=== PATIENT | female | born 1965 | race Two or more races ===

== ENCOUNTER → 2020-01-23 | Day surgery (SDC) | payer MEDICAID ==
[2020-01-22 11:26] LABS: APPEARANCE,URINE CLEAR; BILIRUBIN, URINE NEGATIVE (NEGATIVE); COLOR,URINE PALE YELLOW; GLUCOSE, URINE (UA) NEGATIVE (NEGATIVE); KETONES,URINE NEGATIVE (NEGATIVE); LEUKOCYTE ESTERASE ,URINE 2+ (NEGATIVE); NITRITE,URINE NEGATIVE (NEGATIVE); PH,URINE 7 (4.5-8.0); PROTEIN,URINE NEGATIVE (NEGATIVE); UROBILINOGEN,URINE NORMAL MG/DL (0.0-1.0)
[2020-01-22 11:28] LABS: BASOPHILS % (AUTO) 1.1 % (0.0-2.0); EOSINOPHILS % (AUTO) 5.3 % (0.0-3.0); HEMATOCRIT 43.4 % (37.0-47.0); HEMOGLOBIN 14.5 G/DL (12.0-16.0); LYMPHOCYTES % (AUTO) 32.4 % (20.0-45.0); MEAN CORPUSCULAR VOLUME 90 FL (80-99); MONOCYTES % (AUTO) 5.5 % (1.0-10.0); NEUTROPHILS % (AUTO) 55.7 % (45.0-75.0); PLATELET COUNT 251 K/UL (150-450); RED CELL DISTRIBUTION WIDTH 11.2 % (11.6-14.8); WHITE BLOOD COUNT 8.5 K/UL (4.8-10.8)
[2020-01-22 11:42] LABS: ANION GAP 5 mmol/L (5-15); BLOOD UREA NITROGEN 13 mg/dL (7-18); CALCIUM 9.6 MG/DL (8.5-10.1); CARBON DIOXIDE 29 MMOL/L (21-32); CHLORIDE 106 MMOL/L (98-107); CREATININE 0.7 MG/DL (0.55-1.30); POTASSIUM 4.3 MMOL/L (3.5-5.1); SODIUM 140 MMOL/L (136-145)
--- NOTE | 2020-01-22 17:45 | Pre-op HX & Phy Repo 2 SIG ---
DATE OF ADMISSION: 01/23/2020 SCHEDULED FOR OUTPATIENT SURGERY: January 23, 2020. HISTORY OF PRESENT ILLNESS: The patient is a 54-year-old female in overall stable health, who developed a lump in her left breast lower inner quadrant a year ago. She received antibiotics and it resolved. In October, she was seen for abnormal skin lesion of the left breast located at approximately 6 to 7 o'clock 8 cm from the nipple measuring 2.5 x 0.4 x 2.7 cm consistent with sebaceous cyst versus abscess. However, on examination, there was no mass, no cellulitis, only mild tenderness and there was skin discoloration consistent with an ecchymosis. She was treated with Bactrim without any improvement clinically or by ultrasound which interpreted as infection. She received a week of clindamycin orally without any changes. Antibiotics were discontinued and decision was made to excise this skin lesion. PAST MEDICAL HISTORY/MEDICATIONS: Atenolol, thyroid, Zoloft, statin. ALLERGIES: None. OPERATIONS: . Last menstrual period 2016. PHYSICAL EXAMINATION: GENERAL: The patient is 5 feet 7 inches, 209 pounds. VITAL SIGNS: Within normal limits. HEENT: Within normal limits. LUNGS: Clear. HEART: Regular rhythm. BREASTS: Large and ptotic. The left breast lower inner quadrant in the periphery, there is an area of skin discoloration without mass or inflammation. There is no axillary, supraclavicular lymphadenopathy. ABDOMEN: Soft. PELVIC: Per primary care. RECTAL: Per primary care. EXTREMITIES: Without edema. NEUROLOGIC: Physiologic. IMPRESSION: Persistent skin lesion, left breast. PLAN: Excision of left breast skin lesion. PLAN: Full discussion has been had with the patient regarding the nature of the surgery, indications, alternatives, options, and risks including bleeding, infection, scarring, distortion of breast or nipple, need for additional procedures or treatment based on final pathology, etc. All questions have been answered. She understands and agrees to proceed. Lucio Drake M.D. DR: Jas JOB#: [id number] CC:
[~2020-01-23] VITALS: Ht 167.6 cm; Wt 90.7 kg
[2020-01-23] VITALS (8 sets, daily range): BP systolic 92–105; BP diastolic 5–65
[~2020-01-23] MED LIST: ASPIRIN325 MG ORAL; ATENOLOL25 MG ORAL; Bacitracin 50000 Units Vial ONE; Bupivacaine 0.5% Inj 30 ml vial INJ ONE; D5 1/2NS 1,000 ML IV SCH; DiphenhydrAMINE 50mg/ml Inj IVP PRN; HYDROcodone/Acetamin 5/325 tab ORAL PRN; HYDROmorphone 1mg/ml Carpuject SUBQ PRN; Hydromorphone 0.5mg/0.5ml inj IVP PRN; Ketorolac 30mg Inj IV PRN; Ketorolac 30mg Inj ONE; LR 1000ml 1,000 ML IVLG SCH; LR 1000ml ONE; Lidocaine 1% 10mg/ml/Epi 0.005mg/ml 30ml vial INJ ONE; Lidocaine 1% MPF 10mg/ml 5ml ONE; Lidocaine 1% Plain 30 ml INJ ONE; Midazolam 2mg/2ml Inj IVP PRN; Midazolam 2mg/2ml Inj ONE; NS Irrig 1000ml ONE; NeoSporin Gu Irrig 1ml Amp IRRIG ONE; SYNTHROID112 MCG ORAL; Sterile Water Irrig 2000ml IRRIG ONE; Tylenol #3 tab (300mg/30mg) ORAL PRN; ZOCOR40 MG ORAL; ZOLOFT100 MG ORAL; fentaNYL 100 mcg/2 mL IV ONE
--- NOTE | 2020-01-23 11:28 | Pre-Procedure Note/Attestation ---
Pre-Procedure Note/Attestation Complete Prior to Procedure Planned Procedure: left - exc Procedure Narrative: excision of skin lesion left breast Indications for Procedure Pre-Operative Diagnosis: skin lesion left breast Attestation I attest that I discussed the nature of the procedure; its benefits; risks and complications; and alternatives (and the risks and benefits of such alternatives ), prior to the procedure, with the patient (or the patient's legal credit representative). I attest that, if there was a reasonable possibility of needing a blood transfusion, the patient (or the patient's legal credit representative) was given the [facility] standardized written summary, pursuant to the Yobani Cecelia Blood Safety Act ([place] Health and Safety Code # 1645, as amended). I attest that I re-evaluated the patient just prior to the surgery and that there has been no change in the patient's H&P, except as documented below:none Lucio Drake MD Jan 23, 2020 11:28
--- NOTE | 2020-01-23 12:31 | Anethesia Preoperative Eval ---
Anesthesia Pre-op PMH/ROS General Date of Evaluation: Jan 23, 2020 Time of Evaluation: 11:56 Anesthesiologist: Aleta ASA Score: ASA 2 Mallampati Score Class I : Soft palate, uvula, fauces, pillars visible Class II: Soft palate, uvula, fauces visible Class III: Soft palate, base of uvula visible Class IV: Only hard plate visible Mallampati Classification: Class II Surgeon: Vidal Diagnosis: L breast skin leision Surgical Procedure: Excision of breast lesion Anesthesia History: none Family History: no anesthesia problems Allergies: Coded Allergies: No Known Allergies (Unverified , 01/22/20) Medications: see eMAR Patient NPO?: Yes Past Medical History Cardiovascular: Reports: HTN - borderline, arrhythmia - h/o A fib; Denies: CAD, AK, valve dz, other Pulmonary: Denies: asthma, COPD, ANTIONETTE, other Gastrointestinal/Genitourinary: Reports: GERD; Denies: CRI, ESRD, other Neurologic/Psychiatric: Reports: depression/anxiety; Denies: dementia, CVA, TIA, other Endocrine: Reports: hypothyroidism; Denies: DM, steroids, other HEENT: Denies: cataract (L), cataract (R), glaucoma, WILTON (L), WILTON (R), other Hematology/Immune: Denies: anemia, DVT, bleeding disorder, other Musculoskeletal/Integumentary: Denies: OA, RA, DJD, DDD, edema, other Other: obesity PMH Narrative: as above PSxH Narrative: D&Cs, cardiac ablation Anesthesia Pre-op Phys. Exam Physician Exam Last Vital Signs Date Time Temp Pulse Resp B/P (MAP) Pulse Ox O2 Delivery O2 Flow Rate FiO2 01/23/20 11:29 97.4 58 18 100/55 96 Room Air Constitutional: NAD Neurologic: CN 2-12 intact Cardiovascular: RRR, no M/R/G Respiratory: CTA Gastrointestinal: S/NT/ND, other - obesity Airway Exam Mallampati Score: Class II MO: full Neck: flexible ROM: full Teeth: intact Dentures: no upper, no lower Anesthesia Pre-op A/P Labs see chart Studies Pre-op Studies: EKG - NSR Risk Assessment & Plan Assessment: ASA 2 Plan: GA with LMA Status Change Before Surgery: No Pre-Antibiotics Drug: Ancef 1gr. Given Within 1 Hr of Incision: Yes Time Given: 12:10 Salvador River MD Jan 23, 2020 12:31
--- NOTE | 2020-01-23 12:50 | Brief Operative Note ---
Immediate Post Operative Note Operative Note Pre-op Diagnosis: skin lesion left breast Procedure: excision of skin lesion left breast Post-op Diagnosis: same Post-op Diagnosis: same as pre-op Findings: consistent w/pre-op dx studies Surgeon: alayna Anesthesiologist: kamilah Anesthesia: general Specimen: yes - left breast skin lesion Complications: none Condition: stable Fluids: see anesthesia record Estimated Blood Loss: none Drains: none Implant(s) used?: No Lucio Drake MD Jan 23, 2020 12:50
--- NOTE | 2020-01-23 12:56 | Immediate Post-Op Evaluation ---
Immediate Post-Op Evalulation Immediate Post-Op Evalulation Procedure: L breast excision of skin lesion Date of Evaluation: Jan 23, 2020 Time of Evaluation: 12:55 IV Fluids: 700 Blood Products: none Estimated Blood Loss: min Urinary Output: none Blood Pressure Systolic: 105 Blood Pressure Diastolic: 56 Pulse Rate: 64 Respiratory Rate: 18 O2 Sat by Pulse Oximetry: 99 Temperature (Fahrenheit): 97.6 Pain Score (1-10): 1 Nausea: No Vomiting: No Complications none Patient Status: reacts, patent, none Hydration Status: adequate Salvador River MD Jan 23, 2020 12:56
--- NOTE | 2020-01-23 13:17 | 48 Hour Post Anesthesia Eval ---
Post Anesthesia Evaluation Procedure: L breast excision of skin lesion Date of Evaluation: Jan 23, 2020 Time of Evaluation: 13:16 Blood Pressure Systolic: 102 0: 56 Pulse Rate: 62 Respiratory Rate: 18 Temperature (Fahrenheit): 97.6 O2 Sat by Pulse Oximetry: 98 Airway: patent Nausea: No Vomiting: No Pain Intensity: 1 Hydration Status: adequate Cardiopulmonary Status: stable Mental Status/LOC: patient returned to baseline Follow-up Care/Observations: n/a Post-Anesthesia Complications: none Follow-up care needed: ready to discharge Salvador River MD Jan 23, 2020 13:17
--- NOTE | 2020-01-23 16:14 | Operative Note - Dictated ---
DATE OF OPERATION: 01/23/2020 SURGEON: Lucio Drake MD. FOOD HANDLER: None. ANESTHESIOLOGIST: Salvador River MD. TYPE OF ANESTHESIA: General. PREOPERATIVE DIAGNOSIS: Skin lesion, left breast, lower inner quadrant. POSTOPERATIVE DIAGNOSIS: Skin lesion, left breast, lower inner quadrant. OPERATION PERFORMED: Excision of skin lesion, left breast. DESCRIPTION OF PROCEDURE: The patient was taken to the operating room and under general anesthesia with sequential compression device stockings in place, she was prepped and draped in usual fashion. The abnormality measured approximately 5 cm transversely and 3 cm vertically near the periphery of the lower inner quadrant of the left breast. Ultrasound examination had revealed findings consistent with infection, but there has been no response to multiple antibiotics and the decision was made to excise this. Transversely oriented elliptical incision was made achieving hemostasis with cautery. There were no abnormalities in the subcutaneous tissues or in the underlying breast. There was no palpable abnormality. Hemostasis was carefully achieved with cautery. The specimen was given off the field to pathology. The incision was closed with continuous 3-0 Vicryl deep dermal subcutaneous sutures followed by continuous 4-0 Monocryl subcuticular suture, reinforced with four interrupted 3-0 nylon sutures. Mastisol and half-inch Steri-Strips were applied followed by dry sterile dressing. Final sponge and needle counts were correct. The patient tolerated the procedure well and left the operating room in good condition. Lucio Drake M.D. DR: Jas JOB#: [id number] CC:
== END | disposition home or self-care (01) ==
LOC: SUR 10:46
DX: N60.02 Solitary cyst of left breast (principal); I10 Essential (primary) hypertension; E03.9 Hypothyroidism, unspecified; K21.9 Gastro-esophageal reflux disease without esophagitis; F32.9 Major depressive disorder, single episode, unspecified; F41.9 Anxiety disorder, unspecified; E66.9 Obesity, unspecified; Z68.32 Body mass index [BMI] 32.0-32.9, adult
CPT/HCPCS: 19120; 36415; 80048; 81003; 85025; 85610; 85730; 93005; 94003; J0690; J1885; J2250; J2704; J3010; J7120; U0002; Z7512; 94150